=== PATIENT | female | born 1960 | race Caucasian/White ===

== ENCOUNTER 2023-01-12 14:53 | Outpatient (CLI) | payer BC, SELFPAY ==
--- NOTE | 2023-01-12 15:00 | CRLHL7_ITS ---
For Patients: As a result of the Century Cures Act, medical imaging exams and procedure reports are released immediately into your electronic medical record. You may view this report before your referring provider. If you have questions, please contact your health care provider. INDICATION: Post menopausal bleeding COMPARISON: 01/16/2019 TECHNIQUE: 2D de leon scale and color Doppler images were acquired of the pelvis using a transabdominal and transvaginal approach. FINDINGS: Sonographic images demonstrate a normal size and smooth outer contour of the uterus. Uterus measures 8.3 cm in length by 3.9 cm in AP diameter by 4.3 cm in transverse dimension. The myometrium has a normal uniform echotexture. The endometrial lining measures 8 mm in composite thickness. The right ovary measures 2.6 x 1.9 x 1.5 cm in size and the left ovary is not visualized. The right ovary demonstrates normal arterial and venous blood flow on color Doppler analysis. There are no suspicious fluid collections within the cul-de-sac. IMPRESSION: Mildly heterogeneous endometrium measuring 8 millimeters. No endometrial fluid or uterine fibroid. Dictated by Les Carranza MD @ 01/15/2023 8:38:37 AM (Electronically Signed)
== END 2023-01-12 14:54 | disposition home or self-care (01) ==
LOC: US 14:57
PROVIDERS: Visit Provider Obstetrics & Gynecology
DX: N95.0 Postmenopausal bleeding (principal); R93.89 Abnormal findings on diagnostic imaging of other specified body structures
CPT/HCPCS: 76830; 76856

== ENCOUNTER 2023-02-23 07:04 | Day surgery (SDC) | payer BC, SELFPAY ==
[2023-02-23] VITALS (7 sets, daily range): BP systolic 117–142; BP diastolic 48–84; PULSE 73–80; RESP 14–16; TEMP 36.4; O2SAT 92–96; BMI 36.6
[2023-02-23] MEDS: ALBUTEROL SULFATE 2.5 MG/3 ML VIAL.NEB NEB (07:25)
[2023-02-23] MEDS: LACTATED RINGERS 1000 ML 1,000 ML 100 ML IV (07:40)
[2023-02-23] MEDS: SODIUM CHLORIDE 0.9 % (FLUSH) 10 ML SYRINGE IVF (07:40)
[2023-02-23] MEDS: BUPIVACAINE 0.25% 30 ML INJECTION (09:40)
[2023-02-23] MEDS: LIDOCAINE 1% MDV 20 ML INJECTION (09:40)
--- NOTE | 2023-02-23 09:47 | W.PM.GYNPROC ---
Procedure Note Date of procedure: 02/23/23 Pre-op diagnosis: Postmenopausal bleeding, thickened endometrial stripe, stenotic cervix Post-op diagnosis: same Procedure: 1. Hysteroscopy 2. Polypectomies 3. D&C Anesthesia: MAC and local (Paracervical block) Complications: None. Surgeon: Ashley Figueroa Estimated blood loss (mL): 5 Pathology: specimen obtained, sent to pathology (Endometrial polyps and endometrial curettings, sent together) Condition: stable Disposition: same day Findings: Stenotic cervix. Multiple hyperemic endometrial polyps (5). Procedure Description: After obtaining informed consent, the patient was taken to the operating room where she received monitored anesthesia care. She was prepared and draped in the normal sterile fashion, in the dorsal lithotomy position. An open-sided bivalve speculum was introduced into the vagina and the cervix visualized. The anterior lip of the cervix was grasped with a single-tooth tenaculum for traction. A paracervical block was then administered using a total of 20 mL of a 50/50 mixture of 0.25% Marcaine and 1% lidocaine plain. I was initially unable to pass a uterine sound due to cervical stenosis. Tiny cervical dilators were used to identify the endocervical canal. I was able to pass the 3 smallest dilators. I then used an os finder to stretch the cervical os is slightly. Hegar dilators were then used to further dilate the cervix to a #6 diilator. The uterus was gently sounded. Sound length was 9 cm. A 5 mm hysteroscope was then advanced under direct visualization through the cervix into the uterine cavity. Sterile normal saline was used as distending medium. The uterine cavity was carefully inspected with the findings noted above. Pictures were taken for documentation purposes. The TruClear morcellator was inserted through the operating channel in the hysteroscope. The morcellator was used to remove the polyps in their entirety. The hysteroscope was then removed. The endometrial lining was then sharply curetted. The tenaculum was removed. There was little bleeding from the tenaculum site, which was controlled with direct pressure sponge stick. All instruments were then removed. The patient tolerated the procedure well. Sponge, lap, needle, and instrument counts reported as correct x2. The patient was taken to the recovery room awake in a stable condition. Fluid deficit was noted to be approximately 60 mL.
--- NOTE | 2023-02-23 09:50 | W.ANESCHARGE ---
Anesthesia Charges Start Date/Time Anesthesia Start Date: 02/23/23 Anesthesia Start Time: 09:05 Stop Date/Time Anesthesia Stop Date: 02/23/23 Anesthesia Stop Time: 09:48
--- NOTE | 2023-02-23 10:10 | W.ANESCHARGE ---
Anesthesia Charges Start Date/Time Anesthesia Start Date: 02/23/23 Anesthesia Start Time: 09:05 Stop Date/Time Anesthesia Stop Date: 02/23/23 Anesthesia Stop Time: 09:48
== END 2023-02-23 10:49 | disposition home or self-care (01) ==
PROVIDERS: Visit Provider Obstetrics & Gynecology
PROC: 0UDB8ZZ Extraction of Endometrium, Via Natural or Artificial Opening Endoscopic (ICD-10-PCS; CPT 58558; principal; 2023-02-23 08:30)
DX: N95.0 Postmenopausal bleeding (principal); N84.0 Polyp of corpus uteri; N88.2 Stricture and stenosis of cervix uteri; R93.89 Abnormal findings on diagnostic imaging of other specified body structures
CPT/HCPCS: 58558; 00952; 88305; 94640; J0665; J1100; J1885; J2250; J2405; J2704; J3010; J7120